=== PATIENT | female | born 1960 | race Caucasian/White ===

== ENCOUNTER 2023-08-15 05:19 | Day surgery (SDC) | payer BC, SELFPAY ==
[2023-08-15 05:49] VITALS: BP 150/76; PULSE 94; RESP 16; TEMP 36.6; O2SAT 100; BMI 23.8
[2023-08-15] MEDS: Lactated Ringers 1,000 ML 15 ML IV (05:52)
--- NOTE | 2023-08-15 06:30 | COLBX_PTH ---
PATIENT: POOL ROBLES LOC: EN U#:[id number] AGE/SX: 63/F ROOM: RE08/15/[address]: Dr. Ulisses Smith DO : 1960 BED: DIS: 08/15/2023 SPEC #: [id number] RECD: 08/15/23 12:40 STATUS: SANDRA REMalika #: [id number] MARIA ISABEL: 08/15/23 06:[address]: Ulisses Smith DEPT: SURGICAL PATHOLOGY RECD BY: Jesica Hamlin ENTERED: 08/16/23 09:17 SP TYPE: COLON BX OT DR: Dr. Jennifer Acosta DO Tissues: A - COLON BIOPSY B - Sigmoid colon biopsy Procedures: Surgery Specimen Level IV HEADER OPERATION: Colonoscopy (MAC) with polyp and polypectomy PRE-OP DIAGNOSIS: Rectal bleeding TISSUE SUBMITTED: A - Polyp at splenic flexure biopsy, B - Sigmoid polyp MICROSCOPIC DIAGNOSIS A. Colonic polyp at splenic flexure, biopsy: Fragments of tubular adenoma. B. Sigmoid colon polyp, biopsy: Fragments of tubular adenoma. AM:arlet 08/17/2023 MICROSCOPIC DESCRIPTION Slides are reviewed. GROSS DESCRIPTION A - Received in fixative is one container labeled with the patient's name and designated polyp at splenic flexure. The specimen consists of two irregular fragments of light kan soft tissue that in aggregate measure 0.7 x 0.5 x 0.1 cm. The specimen is totally submitted in one cassette. B - Received in fixative is one container labeled with the patient's name and designated sigmoid polyp. The specimen consists of multiple irregular fragments of light kan soft tissue that in aggregate measure 1.0 x 0.7 x 0.1 cm. The specimen is totally submitted in one cassette. / AM:arlet 08/16/2023 TC:5 [facility]: [id number] x2
--- NOTE | 2023-08-15 06:32 | PCM.HP.BLA ---
History and Physical Date of Admission: 08/15/23 rectal bleed Details: POOL ROBLES, is a 62 F who presents to the office today to establish with Gastroenterology for rectal bleeding. In February she had several days of painless bright red blood per rectum with BMs. Only hx of bleeding prior to that was on toilet paper with wiping due to hemorrhoids from constipation. No change in bowels. Weight is stable. Normal appetite. No nausea, vomiting, heartburn, early satiety, dysphagia, abdominal pain, diarrhea, melena. No FH colon cancer or other GI hx. No prior colonoscopy. She had a normal cologuard about a year ago. ROS Const Constitutional: No fatigue, fever(s), frequent falls, headache(s) or weight change ENT ENT: No headache(s) or difficulty swallowing Cardio Cardiology: No leg pain with exertion Gastro GI: No abdominal pain, bloating, change in bowel habits, constipation, diarrhea, heartburn, difficulty swallowing, Vomiting blood/hematemesis, Blood in stool, nausea/dyspepsia or vomiting Musc Musculoskeletal: No abnormal gait, joint pain, back pain, joint swelling, muscle cramps, muscle weakness, numbness, stiffness, tingling, Arthritis, sciatica, leg pain at night or leg pain with exertion Skin Skin: No dry skin, lesions, itchy eyes or rash Neuro Neurology: No abnormal gait, dizziness, frequent falls, headache(s), numbness, tingling, tremor(s), Increased tone in limbs, paralysis or seizures Psych Psychiatric: No anxiety, No depression, No paranoia, No Behavioral Problems, No Compulsive Behavior, No hyperactivity, No inattentiveness, No obsessions/compulsions, No Temper Tantrums and No suicidal ideation Endo Endocrine: No fatigue or weight change Aller/Imm Allergy/Immunologic: No itchy eyes Marciano/Lymp Hematologic/Lymphatic: No easy bleeding or easy bruising Exam Const General: cooperative, healthy appearing and comfortable Nutritional Appearance: average body habitus Orientation: alert, awake and oriented x3 Quality Reporting Tobacco Screening ([facility]) Smoking Status: Never smoker Assessment and Plan Assessment and Plan (1) Rectal bleeding: Status: Acute Plan: She will be scheduled for colonoscopy to eval for internal hemorrhoids, polyps, malignancy as cause for the rectal bleeding. Office f/u 2 wks later to discuss results. I have examined the patient and the H&P has been reviewed. There are no clinical changes since date of exam.
[2023-08-15 07:14] VITALS: BP 114/63; BP 150/76; PULSE 77; RESP 16; TEMP 36.3; O2SAT 100
--- NOTE | 2023-08-15 07:17 | OP.CCLET_ITS ---
08/15/2023 Jennifer Acosta [address] [place] [address] Re : Colonoscopy procedure for Phyllis Alejandro Dear Dr. Acosta This procedure was performed on Tuesday, August 15, 2023. My impressions and recommendations are as follows: Impressions : - Hemorrhoids found on perianal exam. - Non-bleeding internal hemorrhoids. - Diverticulosis in the recto-sigmoid colon and in the sigmoid colon. - One 15 mm polyp in the sigmoid colon, removed with a hot snare. Resected and retrieved. - Two 1 to 2 mm polyps at the splenic flexure, removed with a jumbo cold forceps. Resected and retrieved. Recommendations : - Repeat colonoscopy in 3 years for surveillance. - Continue present medications. My findings are described in the full procedure note, which is enclosed. If I can be of further assistance, please feel free to contact me at . Sincerely, Ulisses Smith, 08/15/2023 7:16:11 AM This report has been signed electronically.
--- NOTE | 2023-08-15 07:17 | OP.COLON_ITS ---
Patient Name: Phyllis Alejandro Procedure Date: 08/15/2023 6:42 AM Date of : 1960 Age: 63 Procedure: Colonoscopy Indications: Screening for colorectal malignant neoplasm Providers: Ulisses Smith DO Medicines: Monitored Anesthesia Care Patient Profile: This is a 63 year old female. Refer to note in patient chart for documentation of history and physical. Last Colonoscopy: none. The patient's first colonoscopy is today. Complications: No immediate complications. Procedure: Pre-Anesthesia Assessment: - Prior to the procedure, a History and Physical was performed, and patient medications and allergies were reviewed. The patient is competent. The risks and benefits of the procedure and the sedation options and risks were discussed with the patient. All questions were answered and informed consent was obtained. Patient identification and proposed procedure were verified by the physician in the pre-procedure area. Mental Status Examination: alert and oriented. Airway Examination: normal oropharyngeal airway and neck mobility. Respiratory Examination: clear to auscultation. CV Examination: normal. Prophylactic Antibiotics: The patient does not require prophylactic antibiotics. Prior Anticoagulants: The patient has taken no anticoagulant or antiplatelet agents. ASA Grade Assessment: II - A patient with mild systemic disease. After reviewing the risks and benefits, the patient was deemed in satisfactory condition to undergo the procedure. The anesthesia plan was to use monitored anesthesia care (MAC). Immediately prior to administration of medications, the patient was re-assessed for adequacy to receive sedatives. The heart rate, respiratory rate, oxygen saturations, blood pressure, adequacy of pulmonary ventilation, and response to care were monitored throughout the procedure. The physical status of the patient was re-assessed after the procedure. After I obtained informed consent, the scope was passed under direct vision. Throughout the procedure, the patient's blood pressure, pulse, and oxygen saturations were monitored continuously. The Colonoscope was introduced through the anus and advanced to the cecum, identified by appendiceal orifice and ileocecal valve. The colonoscopy was performed without difficulty. The patient tolerated the procedure well. The quality of the bowel preparation was adequate. The ileocecal valve, appendiceal orifice, and rectum were photographed. Scope In: 6:52:21 AM Scope Withdrawal Time 0 hours 12 minutes 19 seconds Scope Out: 7:07:10 AM Total Procedure Duration Time 0 hours 14 minutes 49 seconds Findings: Hemorrhoids were found on perianal exam. Non-bleeding internal hemorrhoids were found during retroflexion. The hemorrhoids were mild, small and Grade I (internal hemorrhoids that do not prolapse). Multiple small and large-mouthed diverticula were found in the recto-sigmoid colon and sigmoid colon. A 15 mm polyp was found in the sigmoid colon. The polyp was sessile. The polyp was removed with a hot snare. Resection and retrieval were complete. Verification of patient identification for the specimen was done. Estimated blood loss was minimal. Two sessile polyps were found in the splenic flexure. The polyps were 1 to 2 mm in size. These polyps were removed with a jumbo cold forceps. Resection and retrieval were complete. Verification of patient identification for the specimen was done. Estimated blood loss was minimal. Impression: - Hemorrhoids found on perianal exam. - Non-bleeding internal hemorrhoids. - Diverticulosis in the recto-sigmoid colon and in the sigmoid colon. - One 15 mm polyp in the sigmoid colon, removed with a hot snare. Resected and retrieved. - Two 1 to 2 mm polyps at the splenic flexure, removed with a jumbo cold forceps. Resected and retrieved. Recommendation: - Repeat colonoscopy in 3 years for surveillance. - Continue present medications. Procedure Code(s): --- Professional --- 35853, Colonoscopy, flexible; with removal of tumor(s), polyp(s), or other lesion(s) by snare technique 47974, 59, Colonoscopy, flexible; with biopsy, single or multiple CPT copyright 2021 [employer]. All rights reserved. The codes documented in this report are preliminary and upon energy advisor review may be revised to meet current compliance requirements. Ulisses Smith DO 08/15/2023 7:16:11 AM This report has been signed electronically. Number of Addenda: 0 Note Initiated On: 08/15/2023 6:42 AM
[2023-08-15 07:19] VITALS: BP 136/76; BP 150/76; PULSE 76; RESP 16; O2SAT 100
[2023-08-15 07:24] VITALS: BP 139/78; BP 150/76; PULSE 74; RESP 16; O2SAT 100
[2023-08-15 07:29] VITALS: BP 134/78; BP 150/76; PULSE 75; RESP 16; TEMP 36.3; O2SAT 100
[2023-08-15 07:53] VITALS: BP 150/76
== END 2023-08-15 08:05 | disposition home or self-care (01) ==
LOC: EN 05:20 → AC 05:20
PROVIDERS: PCP Internal Medicine; Referring Provider Internal Medicine; Visit Provider Internal Medicine Gastroenterology
PROC: 0DJD8ZZ Inspection of Lower Intestinal Tract, Via Natural or Artificial Opening Endoscopic (ICD-10-PCS; CPT 45378; principal; 2023-08-15 06:25)
DX: D12.3 Benign neoplasm of transverse colon (principal); D12.5 Benign neoplasm of sigmoid colon; K64.0 First degree hemorrhoids; K57.30 Diverticulosis of large intestine without perforation or abscess without bleeding
CPT/HCPCS: 45380; 45385; 88305; J7120; J2405